=== PATIENT | male | born 1970 | race Caucasian/White ===

== ENCOUNTER 2021-07-23 13:16 | Emergency (ER) | payer OTHER ==
[2021-07-23] MEDS ORDERED: AUGMENTIN 875-1 EACH PO (15:55)
[2021-07-23] MEDS ORDERED: NAPROSYN500 MG PO (15:55)
== END 2021-07-23 16:05 | disposition home or self-care (01) ==
LOC: ER1 13:16
DX: S41.112A Laceration without foreign body of left upper arm, initial encounter (principal); Z23 Encounter for immunization; W22.8XXA Striking against or struck by other objects, initial encounter; Y92.89 Other specified places as the place of occurrence of the external cause; Y99.0 Civilian activity done for income or pay
CPT/HCPCS: 12001; 73060; 73080; 90471; 99283

== ENCOUNTER 2022-01-29 08:58 | Emergency (ER) | payer SELFPAY ==
[~2022-01-29 08:58] MED LIST: AUGMENTIN 875-1 EACH PO; NAPROSYN500 MG PO
[2022-01-29] MEDS ORDERED: ENDOCET 5-3251 EACH PO (11:26)
== END 2022-01-29 11:44 | disposition home or self-care (01) ==
LOC: ER1 08:58
DX: S22.42XA Multiple fractures of ribs, left side, initial encounter for closed fracture (principal); I10 Essential (primary) hypertension; Z79.899 Other long term (current) drug therapy; Z87.891 Personal history of nicotine dependence; W22.8XXA Striking against or struck by other objects, initial encounter
CPT/HCPCS: 71111; 93005; 99283